=== PATIENT | female | born 1960 | race Caucasian/White ===

== ENCOUNTER → 2021-01-17 | Outpatient (CLI) | payer OTHER ==
--- NOTE | 2021-01-17 15:03 | KCIC ---
EXAM: MRI RIGHT KNEE DATE: 01/17/2021 9:35 AM CLINICAL INDICATION: Reason: ACUTE PAIN IN RIGHT KNEE / Spl. Instructions: / History: Lateral right knee pain after a twisting injury a few weeks ago. COMPARISON: 01/03/2021 radiographs. TECHNIQUE: Multiplanar, multisequence MRI of the right knee was performed without contrast. FINDINGS: No knee joint effusion. No Bingham's cyst. PCL is intact. Intrasubstance fluid signal within the mildly diminutive ACL may represent interstitia l ganglion with likely partial tear. There is borderline anterior translation of the tibia relative t o the femur suggesting ACL insufficiency. MCL, fibular collateral ligament, biceps femoris and IT band are intact. Popliteus is normal in signa l and relatively intact. Neutral patellar tracking. Suprapatellar fat pad edema may be seen with anterior knee pain/impingemen t. Extensor mechanism is intact. Full-thickness cartilage defects within the patellar apex and lateral patellar facet with subchondral edema. Small tricompartmental osteophytes are seen. Medial meniscus: Intact Lateral meniscus: Intact No acute fracture or osteonecrosis. IMPRESSION: 1. Increased signal within the diminutive ACL may represent partial thickness tear with intrasubstan ce ganglion and favored to be chronic given lack of significant associated edema. MRI findings sugges ting ACL insufficiency can be correlated with examination. 2. Right knee joint osteoarthritis with patellofemoral chondromalacia and small tricompartmental ost eophytes. Electronically signed by: Tirso Pandya MD (01/17/2021 3:00 PM) [facility]
== END ==
LOC: KCIC MRI 09:21
PROVIDERS: ATTEND Orthopaedic Surgery
DX: M17.11 Unilateral primary osteoarthritis, right knee (principal); M22.41 Chondromalacia patellae, right knee; M79.4 Hypertrophy of (infrapatellar) fat pad; M25.761 Osteophyte, right knee
CPT/HCPCS: 73721